=== PATIENT | female | born 1970 | race African-American/Black ===

== ENCOUNTER 2019-08-15 19:37 | Emergency (ER) | payer SELFPAY ==
[2019-08-15 19:45] VITALS: BP 159/85; PULSE 85; RESP 20; TEMP 36.7; O2SAT 98
--- NOTE | 2019-08-15 19:54 | ED.DENTAL ---
HPI - Dental/Oral General Chief complaint: Dental/Oral Stated complaint: tooth pain Source: patient Mode of arrival: ambulatory Limitations: no limitations History of Present Illness HPI Narrative: 48-year-old female presents with dental pain right upper gum inflammation and pain with palpation with a tender inflamed right submandibular gland with no shortness of breath no fever or chills no nausea vomiting. Complaint: tooth pain Location: Tooth # Teeth map: 1. Onset (ago): day(s) Duration: constant Severity: moderate Severity scale (1-10): 7 Relieving factors: nothing Exacerbating factors: chewing Context: history of dental caries Associated symptoms: gum swelling Treatment prior to arrival: none and oral analgesic Related Data Allergies Allergy/AdvReac Type Severity Reaction Status Date / Time No Known Allergies Allergy Verified 08/15/19 19:56 Review of Systems Review of Systems: All systems reviewed & are unremarkable except as noted in HPI and below PMFSH Past Medical History Medical History Dental abscess Social History Social History Gender identity (if verbalized by the patient): Female Exam Const: General: no acute distress HENMT: Head: normal to inspection Teeth and gingiva: abnormal tooth and associated gingiva Eyes: Conjunctivae: conjunctivae normal Pupils: Equal, round and reactive pupils present Neck: Neck: normal visual inspection and lymphadenopathy Chest: Chest palpation & inspection: normal inspection of the chest Resp: Effort & Inspection: normal respiratory effort Cardio: Rate: regular rate Rhythm: regular rhythm GI: Auscultation: normal bowel sounds Neuro: General: patient oriented x3 Extrem: General: normal to inspection Psych: Mental Status: mental status grossly normal Critical Care Time Critical Care Time Critical Care Time: No Discharge Plan Discharge Clinical Impression: Dental abscess Patient Disposition: Home, Self-Care Condition: Stable Instructions: Antibiotic Form, Dental Abscess (ED) Prescriptions: New amoxicillin 500 mg capsule 500 mg PO TID Qty: 30 RF: 0 tramadol [Ultram] 50 mg tablet 50 mg PO Q6H PRN (Reason: pain) Qty: 20 RF: 0 amoxicillin 500 mg capsule 500 mg PO TID Qty: 30 RF: 0 tramadol [Ultram] 50 mg tablet 50 mg PO Q6H PRN (Reason: pain) Qty: 20 RF: 0 Follow-up/Referrals: UNKNOWN,DOCTOR [Primary Care Provider] - Stand Alone Forms: Work/School Release IP Time of Disposition: 20:04
--- NOTE | 2019-08-15 19:56 | PC.NURSE ---
Dr Qureshi aware that pt requesting printed prescription as she is not local.
[2019-08-15 20:10] VITALS: RESP 20
--- NOTE | 2019-08-15 20:11 | PC.NURSE ---
After prescriptions sent to [facility] pharmacy in [place] pt requesting to have scripts sent to [facility] in [place]. Dr Titus kirkpatrick.
== END 2019-08-15 20:10 | disposition home or self-care (01) ==
PROVIDERS: Emergency Provider Emergency Medicine
DX: K04.7 Periapical abscess without sinus (principal)
CPT/HCPCS: 99283